=== PATIENT | male | born 1970 | race Caucasian/White ===

== ENCOUNTER 2018-08-25 09:55 | Outpatient (CLI) | payer OTHER, SELFPAY ==
[2018-08-25 11:53] LABS: Hemoglobin A1C 5.9 % (4.5-6.2)
[2018-08-25 17:27] LABS: Iron 86 ug/dL (50-175); Total Iron Binding Capacity 288 ug/dL (250-450); Transferrin Sat 30 % (20-55)
[2018-08-25 17:40] LABS: Ferritin 370 ng/mL (8-388)
[2018-08-27 10:28] LABS: IgA 413 mg/dL (85-499); Interpretation SEE COMMENTS; Tissue Transglutaminase IgA 1.7 U/mL (<4.0)
== END 2018-08-25 10:15 ==
PROVIDERS: PCP Emergency Medicine; Visit Provider Emergency Medicine
DX: Z00.00 Encounter for general adult medical examination without abnormal findings (principal); E11.9 Type 2 diabetes mellitus without complications; K52.9 Noninfective gastroenteritis and colitis, unspecified
CPT/HCPCS: 36415; 82784; 83516; 82728; 83036; 83540; 83550

== ENCOUNTER 2019-08-31 11:25 | Outpatient (CLI) | payer OTHER, SELFPAY ==
[2019-08-31 12:57] LABS: Anion Gap 9.3 mmol/L (3-11); BUN 16 mg/dL (7-18); CO2 31.7 mmol/L (21.0-32.0); CREATININE 0.79 mg/dL (0.70-1.30); Calcium 8.9 mg/dL (8.5-10.1); Chloride 102 mmol/L (98-107); Glucose 101 mg/dL (74-106); Potassium 3.7 mmol/L (3.5-5.1); Sodium 143 mmol/L (136-145)
== END 2019-08-31 11:45 ==
PROVIDERS: PCP Emergency Medicine; Visit Provider Emergency Medicine
DX: I10 Essential (primary) hypertension (principal)
CPT/HCPCS: 36415; 80048

== ENCOUNTER 2020-03-19 00:42 | Outpatient (CLI) | payer OTHER, SELFPAY ==
--- NOTE | 2020-03-19 10:18 | DI.CT_ITS ---
EXAM: CT ABDOMEN WO CLINICAL HISTORY: Follow-up adrenal mass,E27.9 TECHNIQUE: COMPARISON: CT RENAL COLIC WO CONTRAST from 10/02/2016 FINDINGS: CT examination of the upper abdomen was performed without contrast administration. Examination is co mpared with prior study of 10/02/2016. Previous examination showed bilateral adrenal nodules, possib ly multiple, the findings are unchanged on today's examination with no evidence of growth of nodules. The largest probable discrete nodule the right adrenal measures up to about 3.7 cm diameter on adamson saxial images and is unchanged from the prior study. I would note the both adrenals and associated n odules measure around 0 to -5 Hounsfield units consistent with adrenal adenoma. Note is made of tiny nonobstructing left renal calculi. Otherwise the kidneys are unremarkable in ap pearance. No hydronephrosis. No renal mass by noncontrast criteria. Unremarkable appearance of the liver and spleen. Cholelithiasis noted in a distended gallbladder. N o gallbladder wall thickening or pericholecystic fluid collection. No biliary dilatation. Unremarka ble appearance of pancreas. No abdominal adenopathy seen. Abdominal aorta is of normal diameter. Images obtained through the lung bases are unremarkable. IMPRESSION: Stable nodular low-attenuation appearance of both adrenal glands, the findings are consistent with bi lateral adrenal adenomas, no change from 2017. No additional follow-up recommended. Cholelithiasis noted. RADIATION DOSE DELIVERED: 735.55mGy.cm Total DLP
== END 2020-03-19 01:02 ==
PROVIDERS: PCP Emergency Medicine; Visit Provider Emergency Medicine
DX: E27.8 Other specified disorders of adrenal gland (principal); K80.20 Calculus of gallbladder without cholecystitis without obstruction
CPT/HCPCS: 74150

== ENCOUNTER 2020-09-05 22:42 | Outpatient (REF) | payer BC, SELFPAY ==
[2020-09-05 22:34] LABS: ALT 73 U/L (16-63); AST 36 U/L (15-37); Alkaline Phosphatase 77 U/L (46-116); Anion Gap 8.2 mmol/L (3-11); BUN 14 mg/dL (7-18); Bilirubin, Direct 0.12 mg/dL (0.00-0.20); Bilirubin, Total 0.5 mg/dL (0.2-1.0); CO2 29.8 mmol/L (21.0-32.0); CREATININE 0.9 mg/dL (0.70-1.30); Calcium 9.5 mg/dL (8.5-10.1); Chloride 103 mmol/L (98-107); Glucose 118 mg/dL (74-106); Potassium 3.4 mmol/L (3.5-5.1); Sodium 141 mmol/L (136-145); Total Protein 7.5 g/dL (6.4-8.2)
[2020-09-05 23:16] LABS: Calculated LDL 81 mg/dL (<100); Cholesterol 159 mg/dL (<200); HDL Cholesterol 38 mg/dL (40-60); Triglyceride 200 mg/dL (<150); Vitamin B12 333 pg/mL (193-986)
[2020-09-06 18:28] LABS: PSA, Screening 0.2 ng/mL (0.0-3.5)
== END 2020-09-05 22:43 | disposition home or self-care (01) ==
LOC: NCHCN 22:42
PROVIDERS: PCP Emergency Medicine; Visit Provider Emergency Medicine
DX: E03.9 Hypothyroidism, unspecified (principal); I10 Essential (primary) hypertension; K76.0 Fatty (change of) liver, not elsewhere classified; E66.9 Obesity, unspecified; M79.2 Neuralgia and neuritis, unspecified; Z12.5 Encounter for screening for malignant neoplasm of prostate
CPT/HCPCS: 80048; 80061; 80076; 84153; 82607; 84443

== ENCOUNTER 2020-10-15 03:30 | Outpatient (CLI) | payer BC, SELFPAY ==
[2020-10-15 10:06] LABS: Source Nasal/Nares
[2020-10-15 12:35] LABS: COVID-19 PCR Negative (Negative)
== END 2020-10-15 03:31 | disposition home or self-care (01) ==
LOC: LBO 03:30
PROVIDERS: PCP Emergency Medicine; Visit Provider Surgery
DX: Z20.822 Contact with and (suspected) exposure to COVID-19 (principal); Z01.818 Encounter for other preprocedural examination
CPT/HCPCS: 87635

== ENCOUNTER 2020-10-17 07:41 | Day surgery (SDC) | payer BC, SELFPAY ==
--- NOTE | 2020-10-17 06:34 | ROE_ITS ---
Date of service: 10/17/20 Time of Service: 15:27 Operative Note Operative Note DATE OF PROCEDURE: 10/17/20 PRE-OP DIAGNOSIS: Umbilical hernia POST-OP DIAGNOSIS: same PROCEDURE: Umbilical hernia repair with mesh SURGEON: Марина Bolaños [employer] OPERATOR: Earline Leiva ANESTHESIA TYPE: Local By Surgeon, General LMA/ETT and Primary Nerve Block Refer to Anesthesia Record ESTIMATED BLOOD LOSS: 25 PATHOLOGY: none sent COMPLICATIONS: None Patient was transported to: PACU Patient's condition: stable Implants: Ventralex ST Hernia Patch: LOT- [id number] REF- [id number] 2021-08-23 Indications: Mr. Gonzalez is a pleasant 50-year-old gentleman who was seen today to discuss umbilical hernia repair as well as a screening colonoscopy. On examination he has an umbilical hernia that is not completely reducible. As he does not have any nausea or vomiting I suspect that he has some omentum incarcerated within the hernia. It is causing him discomfort at this point so I think repair should be done in the near future. My recommendation is that we repair his hernia first and then proceed with a colonoscopy 6 weeks after that. I explained the hernia repair with a pamphlet. We reviewed the anatomy as well as complications. We also discussed a bilateral rectus block to help with postoperative pain. The plan is to send him home with Tylenol and ibuprofen for pain. We also reviewed Covid testing and quarantine requirements. Risks, benefits and complications have been reviewed. Complications include but are not limited to bleeding, pain, infection, injury to underlying structures like bowel and adverse reaction to the medication. Questions were entertained and answered to their satisfaction and they wished to proceed. No guarantees were given or implied. COVID-19 testing explained to the patient. Reason for test reviewed. Quarantine per state requirements reviewed with patient. Patient understands and agrees to testing. Proceed with umbilical hernia repair with mesh. Findings: 3 cm hernia defect Procedure Description: After informed consent was obtained the patient was taken to the operating room and placed in a supine position. Monitors and SCDs were applied and a timeout was done. The patient's name, date of , procedure type, procedure site, allergies to medications, preoperative anti biotic, and DVT prophylaxis were all reviewed. Fire risk was assessed. Next anesthesia did a bilateral rectus block under ultrasound guidance. Please see their separate dictation. Once anesthesia was done the abdomen was prepped and draped in a sterile surgical fashion. 0.5% Bupivacaine was injected into the dermis just under the umbilicus. An incision was made with a 10 blade under the umbilicus. Dissection was done with cautery through the subcutaneous tissues and through the umbilical stalk down to the fascia. The hernia defect was identified and measured 3 cm. The hernia sac was opened and the peritoneum was swept for adhesions. no adhesions were noted. A 8 cm round mesh was then placed under the peritoneum and secured circumferentially with absorbable tacks. Once the mesh was secured the tissues were irrigated with some normal saline. No bleeding was identified. The fascia was closed over the mesh with 0 vicryl running suture. 0 Vicryl was used to secure the umbilicus down to the fascia. The subcutaneous tissue was re-approximated with 2-0 vicryl. The dermis was re-approximated with a running 4-0 Vicryl. The skin was cleaned and dried and skin affix was applied. The patient was woken up and taken back to recovery in stable condition. There were no immediate complications. Sponge, instrument and needle counts were correct at the end of the case x2.
--- NOTE | 2020-10-17 06:41 | PDOC.DSDIS_ITS ---
Discharge Plan Disposition Patient Disposition: HOME Condition: Good Discharge Details Reason For Visit: Umbilical hernia Attending Provider: Марина Bolaños Primary Care Provider: Juan Faust Home Meds and New Rx's Prescriptions: Continued lisinopril-hydrochlorothiazide 10-12.5 mg tablet 2 tab PO DAILY Qty: 180 RF: 3 sertraline 100 mg tablet 200 mg PO DAILY Qty: 180 RF: 3 methylphenidate HCl [Ritalin LA] 40 mg capsule,ER biphasic 50-50 40 mg PO QAM MDD 80 mg Qty: 30 RF: 0 methylphenidate HCl [Ritalin LA] 20 mg capsule,ER biphasic 50-50 20 mg PO QAM MDD 80 mg Qty: 30 RF: 0 omeprazole 20 MG capsule,delayed release(DR/EC) 20 mg PO DAILY Qty: 90 RF: 3 multivitamin Tablet 1 tab PO DAILY RF: 0 Discharge Instructions Instructions: Umbilical Hernia Repair (DC) Additional Instructions: Activity at Home after surgery: 1. Make sure you walk outside at least 4 times per day 2. You should be able to climb a flight of stairs 3. No driving while in pain or taking pain medications 4. No strenuous activity or heavy lifting for 4 weeks (open surgery) Diet, Nutrition, & wound healin. Avoid alcohol until after you are recovered from your surgery 2. Make sure to eat plenty of lean protein (meat, fish, eggs, cottage cheese, beans) 3. Eat a variety of fruits and vegetables. Eat plenty of high fiber foods to avoid constipation. 4. Drink plenty of liquids to stay hydrated and avoid constipation Pain Medications: 1. Tylenol 650mg every 6 hours as needed and Ibuprofen 600 mg every 6 hours as needed. You may alternate between the 2 medications every 3 hours 2. If a narcotic has been prescribed take as directed only for breakthrough pain For Constipation: 1. Take Milk of Magnesia or MiraLax as needed for constipation Other: 1. You may shower daily. Do not scrub the incisions 2. Do not soak the incisions for 1 week 3. You may alternate ice and heat as needed for pain and swelling Wound Care: 1. Keep the incisions clean and dry Please call our office if you develop: 1. Fevers >101.5 2. Nausea or Vomiting 3. Worsening pain 4. Redness and thick discharge from the wounds If after hours please call the Hospital at and ask to speak to the on-call surgeon Referrals: Марина Bolaños MD [ [facility] STAFF PHYSICIAN] - 10/30/20 9:00 am Activity:: nO LIFTING >20 LB Remove Dressings/Wound Care:: 24 hours Diet:: As Tolerated Discharge Orders Discharge Orders: Discharge Order (Routine); Ordered 10/17/20 Ordered By: Марина Bolaños
[2020-10-17 08:22] VITALS: BP 136/83; PULSE 72; RESP 16; TEMP 36; O2SAT 94
[2020-10-17] MEDS: Celecoxib 200 MG CAP PO (08:44)
[2020-10-17] MEDS: Acetaminophen 500 MG TAB 1000 MG PO (08:44)
[2020-10-17] MEDS: Lactated Ringers 1,000 ML 80 ML IV (09:05)
[2020-10-17] MEDS: ceFAZolin 2 GM/50 ML BAG IVPB (10:03)
[2020-10-17] MEDS: Bupivacaine 0.25% Pres-Free 30 ML VIAL ×2 (11:00)
[2020-10-17 11:29] VITALS: BP 133/92; PULSE 65; RESP 11; TEMP 36.4; O2SAT 95
[2020-10-17 11:34] VITALS: BP 131/93; PULSE 66; RESP 11; TEMP 36.4; O2SAT 95
[2020-10-17 11:39] VITALS: BP 127/94; PULSE 65; RESP 11; TEMP 36.4; O2SAT 95
[2020-10-17 11:54] VITALS: BP 135/94; PULSE 68; RESP 14; TEMP 36.3; O2SAT 100
[2020-10-17 12:46] VITALS: BP 131/89; PULSE 61; RESP 18; TEMP 36.5; O2SAT 92
== END 2020-10-17 13:59 | disposition home or self-care (01) ==
LOC: SUR 07:42
PROVIDERS: PCP Emergency Medicine; Visit Provider Surgery
PROC: (CPT 49585; principal; 2020-10-17 08:45)
DX: K42.9 Umbilical hernia without obstruction or gangrene (principal); G89.18 Other acute postprocedural pain
CPT/HCPCS: 49585; 76942; C1781; J0690; J1885; J2001; J2250; J2405; J2704

== ENCOUNTER 2020-11-05 03:33 | Outpatient (CLI) | payer BC, SELFPAY ==
[2020-11-06 14:17] LABS: COVID-19 RT-PCR UVMMC Result Negative (Negative)
== END 2020-11-05 03:34 | disposition home or self-care (01) ==
LOC: LBO 03:33
PROVIDERS: PCP Emergency Medicine; Visit Provider Emergency Medicine
DX: Z20.822 Contact with and (suspected) exposure to COVID-19 (principal)
CPT/HCPCS: U0003

== ENCOUNTER 2020-11-09 02:41 | Outpatient (CLI) | payer BC, SELFPAY ==
[2020-11-09 11:32] LABS: Source Nasal/Nares
[2020-11-09 16:50] LABS: COVID-19 PCR Negative (Negative)
== END 2020-11-09 02:42 | disposition home or self-care (01) ==
LOC: LBO 02:41
PROVIDERS: PCP Emergency Medicine; Visit Provider Surgery
DX: Z20.822 Contact with and (suspected) exposure to COVID-19 (principal); Z01.818 Encounter for other preprocedural examination
CPT/HCPCS: 87635

== ENCOUNTER 2020-11-09 13:21 | Outpatient (REF) | payer BC, SELFPAY ==
[2020-11-09 13:43] LABS: Anion Gap 7.5 mmol/L (3-11); BUN 20 mg/dL (7-18); CO2 30.5 mmol/L (21.0-32.0); Calcium 9.5 mg/dL (8.5-10.1); Chloride 105 mmol/L (98-107); Glucose 125 mg/dL (74-106); Potassium 3.9 mmol/L (3.5-5.1); Sodium 143 mmol/L (136-145)
== END 2020-11-09 13:22 | disposition home or self-care (01) ==
LOC: LBN 13:21
PROVIDERS: PCP Emergency Medicine; Visit Provider Emergency Medicine
DX: I10 Essential (primary) hypertension (principal)
CPT/HCPCS: 80048

== ENCOUNTER 2020-11-12 09:43 | Day surgery (SDC) | payer BC, SELFPAY ==
--- NOTE | 2020-11-12 06:50 | W.COLOREPORT ---
Date of service: 11/12/20 Time of Service: 11:06 Colonoscopy Report Date of procedure: 11/12/20 Pre-op diagnosis general: Colon Cancer Screening Post-op diagnosis procedure note: other (polyp at 30 cm, diverticulosis) Procedure: Colonoscopy with polypectomy Surgeon: Марина Bolaños Anesthesia Type: General:No Airway Estimated blood loss (mL): 3 Pathology: other (polyp) Complications: None Disposition: same day Indications: Mr. Gonzalez is a 50-year-old gentleman who needs his first screening colonoscopy. There is a question regarding rotation of his large bowel. He had a CT scan of the chest and abdomen. Unfortunately I cannot tell whether his large bowel is rotated. We will proceed with colonoscopy about 6 weeks after his umbilical hernia repair there is a chance that I will not be able to complete the colonoscopy if he indeed has a malrotation. This was discussed with the patient. Risks, benefits and complications have been reviewed. Complications include but are not limited to bleeding, pain, perforation, missed small lesion/polyp, sore throat, aspiration and adverse reaction to the medications. Questions were entertained and answered to their satisfaction and they wished to proceed. No guarantees were given or implied. COVID-19 testing explained to the patient. Reason for test reviewed. Quarantine per state requirements reviewed with patient. Patient understands and agrees to testing. Proceed with colonoscopy under sedation Prep: Miralax/Dulcolax Procedure Start Time: 11:06 Procedure End Time: 11:42 Retraction Time: 28 minutes Findings: one 2 cm polyp at 30 cm Procedure Description: After informed consent was obtained the patient was taken to the procedure room and placed in a left decubitous position. Monitors were applied and a time out was done. The patients name, date of , procedure, allergies to medications and metal in their body was reviewed. The patient was then sedated. Once sedated and comfortable a rectal exam was done. External exam was normal. Internal exam revealed a normal sphincter tone and no palpable masses. The prostate felt smooth. The scope was then introduced and retro-flexed. No internal hemorrhoids, polyps or masses were identified on retro-flexion. The scope was then advanced to the cecum without difficulty. The ileocecal vlave and appendiceal orifice were identified. The prep was good. The scope was then slowly retracted over 28 minutes back into the rectum. Polyps were removed with a hot snare at 30 cm. There was left sided diverticulosis noted. The scope was removed and the patient was woken up and taken back to Same day surgery in stable condition. The patient tolerated the procedure well and there were no immediate complications. Follow up: The patient should follow up in 3 years unless they develop changes in bowel habits or other new gastrointestinal complaints.
--- NOTE | 2020-11-12 06:51 | W.PM.DSUDISC ---
Discharge Plan Disposition Patient Disposition: HOME Condition: Good Discharge Details Reason For Visit: Colonoscopy Attending Provider: Марина Bolaños Primary Care Provider: uJan Faust Home Meds and New Rx's Prescriptions: Continued lisinopril-hydrochlorothiazide 10-12.5 mg tablet 2 tab PO DAILY Qty: 180 RF: 3 sertraline 100 mg tablet 200 mg PO DAILY Qty: 180 RF: 3 omeprazole 20 MG capsule,delayed release(DR/EC) 20 mg PO DAILY Qty: 90 RF: 3 methylphenidate HCl [Ritalin LA] 20 mg capsule,ER biphasic 50-50 20 mg PO QAM MDD 80 mg Qty: 30 RF: 0 methylphenidate HCl [Ritalin LA] 40 mg capsule,ER biphasic 50-50 40 mg PO QAM MDD 80 mg Qty: 30 RF: 0 multivitamin Tablet 1 tab PO DAILY RF: 0 Discontinued bisacodyl [Dulcolax (bisacodyl)] 5 mg tablet,delayed release (DR/EC) 5 mg PO ONCE Qty: 4 RF: 0 polyethylene glycol 3350 17 gram powder in packet 255 g PO DAILY Qty: 15 RF: 0 Discharge Instructions Instructions: Diverticulosis (DC) Additional Instructions: Findings:1. Diverticulosis 2. one polyp Follow up: depends on the pathology results Please call if you develop: fevers >101.5 Nausea or Vomiting Abdominal pain that is not transient DAY SURGERY UNIT POST ENDOSCOPY INSTRUCTIONS 1. Because there will be medication in your system for the next 24 hours, you may feel a little sleepy. Your coordination will be affected. Therefore: a. Do not drive or operate dangerous equipment for 24 hours. b. Do not drink alcohol beverages for 24 hours (not even beer). c. Plan to go home and rest for the day. 2. Generally there are no restrictions on your activity after a day or so has gone by, but you may feel a bit fatigued for a few days. 3 After you arrive home you may have a light meal and return to a normal diet as you can tolerate it without feeling sick to your stomach. 4. After surgery, you may feel pain or discomfort. This should be only transient, but if it persists please contact your doctor. 5. If there are any questions regarding the findings of your procedure, please feel free to contact your doctor. 6. If you are unable to contact your doctor with a problem, contact the hospital at [phone]. 6. Continue all your regular medications unless directed otherwise. I understand the above instructions and have no questions. Signature of Patient or Responsible Adult Escort Date/Time Name of Responsible Adult Escort Signature of Nurse Date/Time Activity:: Activity as Tolerated Diet:: high fiber diet Discharge Orders Discharge Orders: Discharge Order (Routine); Ordered 11/12/20 Ordered By: Марина Bolaños
[2020-11-12 09:45] VITALS: BP 126/82; PULSE 74; RESP 18; TEMP 36.2; O2SAT 95
[2020-11-12] MEDS: Lactated Ringers 1,000 ML 80 ML IV (10:16)
--- NOTE | 2020-11-12 11:30 | BOWEL_PTH ---
PATIENT: Juan C Gonzalez LOC: [facility] U#:[id number] AGE/SX: 50/M ROOM: RE11/12/[address]: Марина Bolaños MD : 1970 BED: DIS: 11/12/2020 SPEC #: [id number] RECD: 11/12/20 12:43 STATUS: TINA REQ #: [id number] INOCENTE: 11/12/20 11:[address]: Марина Bolaños DEPT: Surgical Specimen RECD BY: Claire Melgar ENTERED: 11/12/20 12:44 SP TYPE: Bowel OTHR DR: Juan Faust DO Tissues: 1 - BIOPSY BOWEL Procedures: GROSS AND MICRO LEVEL 4 Comments: [id number]
[2020-11-12] MEDS: Endoscopic Tattoo 5 ML SYR IJ (11:35)
[2020-11-12 12:17] VITALS: BP 102/64; PULSE 62; RESP 18; TEMP 36.4; O2SAT 94
== END 2020-11-12 12:35 | disposition home or self-care (01) ==
LOC: SUR 09:43
PROVIDERS: PCP Emergency Medicine; Visit Provider Surgery
PROC: 0DJD8ZZ Inspection of Lower Intestinal Tract, Via Natural or Artificial Opening Endoscopic (ICD-10-PCS; CPT 45378; principal; 2020-11-12 10:30)
DX: Z12.11 Encounter for screening for malignant neoplasm of colon (principal); K57.30 Diverticulosis of large intestine without perforation or abscess without bleeding; D12.6 Benign neoplasm of colon, unspecified
CPT/HCPCS: 45385; 88305; J2001; J2704

== ENCOUNTER 2021-11-25 16:32 | Outpatient (REF) | payer BC, SELFPAY ==
[2021-11-25 21:00] LABS: *AMPHETAMINES SCREEN URINE Negative (Negative); *BARBITURATES SCREEN URINE Negative (Negative); *BENZODIAZEPINES SCREEN URINE Negative (Negative); Cannabinoids THC Negative (Negative); Cocaine Screen,Urine Negative (Negative); METHADONE URINE SCREEN Negative (Negative); OPIATES URINE SCREEN Negative (Negative)
[2021-11-25 21:03] LABS: Tricyclic Antidepressants Negative (Negative)
[2021-12-03 09:02] LABS: Amphetamine Negative ng/mL (Cutoff: 25); Amphetamines Interpretation Negative.; MDA (Ecstasy Metabolite) Negative ng/mL (Cutoff: 25); MDMA (Ecstasy) Negative ng/mL (Cutoff: 25); Methamphetamine Negative ng/mL (Cutoff: 25); Phentermine Negative ng/mL (Cutoff: 25); Pseudoephedrine/Ephedrine Negative ng/mL (Cutoff: 25)
== END 2021-11-25 16:33 | disposition home or self-care (01) ==
LOC: LBN 16:32
PROVIDERS: PCP Nurse Practitioner Family; Visit Provider Family Medicine
DX: R89.2 Abnormal level of other drugs, medicaments and biological substances in specimens from other organs, systems and tissues (principal)
CPT/HCPCS: 80307; 80324

== ENCOUNTER 2024-05-24 03:15 | Outpatient (CLI) | payer SELFPAY ==
[2024-05-24 13:20] LABS: Calculated LDL 94 mg/dL (<100); Cholesterol 164 mg/dL (<200); Estimated GFR 89.44 (mL/min/1.73m2); HDL Cholesterol 42 mg/dL (40-60); Triglyceride 143 mg/dL (<150)
[2024-05-24 14:04] LABS: Hemoglobin A1C 5.3 % (<5.7)
== END 2024-05-24 03:16 | disposition home or self-care (01) ==
PROVIDERS: PCP Nurse Practitioner Family; Visit Provider Nurse Practitioner Family
DX: I10 Essential (primary) hypertension (principal); Z13.220 Encounter for screening for lipoid disorders; Z13.1 Encounter for screening for diabetes mellitus
CPT/HCPCS: 36415; 80061; 82565; 83036; 84132